=== PATIENT | male | born 2000 | race African-American/Black ===

== ENCOUNTER 2021-03-13 11:37 | Emergency (ER) | payer MEDICAID, SELFPAY ==
[2021-03-13 11:38] VITALS: BP 133/87; PULSE 95; RESP 16; TEMP 36.2; O2SAT 98; BMI 30.2
--- NOTE | 2021-03-13 12:30 | EDS_ITS ---
HPI History of Present Illness Chief Complaint: Sore Throat Informant: patient Narrative Narrative: Patient is a 21-year-old previously healthy male who presents to the emergency department for sore throat and cough. Symptoms have been present over the past 4 days. He states that he does know of a sick contact. His cousin who was around him is being Covid tested but never got her results. The patient has not been vaccinated. He has been bringing up some sputum. He states he has had bacterial infections of his throat before in the past. He is not sure if this is strep. He had subjective fevers at home. He has not been taking any thing for his symptoms. He denies nausea/vomiting or diarrhea. No headache or stiff neck. No rashes. Patient does smoke cigarettes and marijuana. PFSH PFSH Home Medications NK 03/13/21 [History Last Taken Unknown] Allergy/AdvReac Type Severity Reaction Status Date / Time No Known Allergies Allergy Verified 03/13/21 11:40 Social History Smoking Status: Current every day smoker tobacco type: cigarettes ROS ROS ED Constitutional Constitutional ED: Reports chills, fever(s) and subjective Eyes Eyes: Denies change in vision ENT ENT ED: Reports sore throat; Denies epistaxis or rhinorrhea Cardiovascular Cardiovascular: Denies chest pain or palpitations Respiratory/Chest Respiratory/Chest: Reports cough and sputum; Denies dyspnea Gastrointestinal Gastrointestinal: Denies abdominal pain, diarrhea, nausea or vomiting Musculoskeletal Musculoskeletal: Denies back pain or neck pain Integumentary Denies rash Neurologic Neurologic: Denies dizziness, headache(s) or weakness EXAM Physical Exam Const Vital Signs: 03/13/21 11:38 Temperature 97.2 F L Temperature Source Temporal Pulse Rate 95 Respiratory Rate 16 Blood Pressure 133/87 H Blood Pressure Mean 102 Pulse Ox 98 Oxygen Delivery Method Room Air Positive well nourished and well developed General Appearance ED: well developed and NAD HEENT Reports normocephalic, head/scalp atraumatic and moist mucous membranes HEENT Narrative: With large tonsils bilaterally. Uvula midline. No oral lesions. No significant oral swelling. Eyes PERRL and EOMs intact bilaterally Neck supple Chest Wall inspection of chest normal Resp normal respiratory effort and clear to auscultation bilaterally Auscultation: Negative for rales, rhonchi or wheezes Cardio regular rate, regular rhythm and no murmurs GI normal to inspection, nondistended, normoactive bowel sounds and non-tender Palpation: soft; Negative for guarding or rebound tenderness present Extremity normal to inspection General Extremety ED: Negative for edema or tenderness General Extremity: Negative for edema Neuro Sensorium / Orientation: alert Motor Exam: strength 5/5 throughout Psych mental status grossly normal Skin no rashes or lesions noted MDM MDM MDM Narrative Medical decision making narrative: Patient presents the ED for cough and sore throat. On arrival to the ED vital signs within normal limits. Is in no acute distress. Is a benign physical exam. Patient is concerned for Covid. Will check Covid swab and strep swab. I do not feel patient needs a chest x-ray to e valuate for pneumonia. No lab work indicated at this time. Patient's swabs were both negative. Will recommend symptomatic treatment. Return precautions are reviewed with him. Otherwise he is to follow-up with his PCP. Return precautions are reviewed. All questions were answered. Discharge Plan Triage Chief Complaint: Sore Throat Other Complaint: Cough ED Provider: Javier Alves Dx/Rx/DC Orders Clinical Impression: Sore throat Instructions: ED URI, Viral, No Abx (Adult) Prescriptions: No Action NK RF: 0 Primary Care Provider: Care Physician,No Primary Referrals: Care Physician,No Primary [Primary Care Provider] - 1 Week if not improving Disposition Disposition: Home, Self Care Discharge Date/Time: 03/13/21 14:43
--- NOTE | 2021-03-13 13:17 | CM.ED ---
SW Note Referral Source: Case Find Referral Reason: No Primary Care Physician SW met with patient and his girlfriend. SW provided patient with [facility] and encouraged patient to contact a PCP for ongoing medical care and educaed patient on the value of PCP's. No further SW needs voiced. SW remains available. Plan: Provided with PCP resources Ruthie VAZQUEZ
== END 2021-03-13 14:43 | disposition home or self-care (01) ==
PROVIDERS: Emergency Provider Emergency Medicine
DX: J02.9 Acute pharyngitis, unspecified (principal); R05 Cough; F17.210 Nicotine dependence, cigarettes, uncomplicated
CPT/HCPCS: 87077; 87426; 87880; 99282

== ENCOUNTER 2021-03-28 19:17 | Emergency (ER) | payer MEDICAID, SELFPAY ==
[2021-03-28 19:18] VITALS: BP 106/95; PULSE 80; RESP 16; TEMP 37.1; O2SAT 100; BMI 29.5
--- NOTE | 2021-03-28 19:53 | EX.ED.DYSGE1 ---
HPI History of Present Illness Chief Complaint: Back Narrative Narrative: Patient presents with multiple symptoms, when I walk into the room his first concern is for an STD. He has no penile discharge or testicular pain or any symptoms but just wants to make sure. He also complains of a cough for the past month same cough that his girlfriend has, he has no fever chills, he has no upper airway congestion cough seems to be worse after he smokes marijuana. He also was helping to lift a friend yesterday and developed some thoracic back pain. He has no radiation to his legs or arms and he has no midline pain. PFSH PFSH Home Medications guaifenesin [Mucinex] 600 mg PO BID #10 tab 03/28/21 [Rx Last Taken Unknown] tizanidine 2 mg PO BID #10 tab 03/28/21 [Rx Last Taken Unknown] Allergy/AdvReac Type Severity Reaction Status Date / Time No Known Allergies Allergy Verified 03/28/21 19:17 Social History Smoking Status: Current every day smoker tobacco type: cigarettes ROS ROS ED ROS Narrative Past medical history: Reviewed, unremarkable Medications: Reviewed Social history: Noncontributory Review of systems: All systems negative except as indicated General: No fever Eyes: No visual changes ENT: Some upper airway congestion Neck: No neck pain Cardiovascular: No chest pain Respiratory: No shortness of breath. Cough as in HPI Gastrointestinal: No abdominal pain, nausea vomiting or diarrhea Genitourinary: No dysuria, no testicular pain, no penile discharge Musculoskeletal: Denies myalgias no difficulty with ambulation Back: Back pain as in HPI Skin: No rash Neurological: No memory loss, confusion or any focal weakness Psych: No recent behavioral changes Hematologic: No easy bleeding or easy bruising EXAM Physical Exam Narrative Exam Narrative: Physical exam General: Well nourished, Well developed, No Acute Distress Head: Normocephalic, Atraumatic Eyes: Conjunctiva not pale ENT: Moist mucous membranes. Slight postnasal drip and slight rhinorrhea turbinates are normal Neck: Supple, Nontender, No lymphadenopathy Cardiovascular: Regular rate, Regular rhythm Respiratory: No distress, CTA bilaterally Abdomen: Soft, Nontender, Nondistended Back: Some tenderness in the upper thoracic region bilaterally, no spinal tenderness. Most of the pain is paraspinal and trapezius region. Extremities: Nontender, No edema Skin: Normal color, No rash Neurological: Alert, Normal Strength, Normal Sensation Psychological: Normal affect Const Vital Signs: 03/28/21 19:18 Temperature 98.7 F Temperature Source Temporal Pulse Rate 80 Respiratory Rate 16 Blood Pressure 106/95 H Blood Pressure Mean 98 Pulse Ox 100 Oxygen Delivery Method Room Air MDM MDM MDM Narrative Medical decision making narrative: I will test for GC and chlamydia, I will give him decongestants and muscle relaxants. Discharge Plan Triage Chief Complaint: Back ED Provider: Oleg Minor Dx/Rx/DC Orders Clinical Impression: Cough, Acute thoracic myofascial strain, Concern about STD in male without diagnosis Instructions: ED Back Sprain/Strain, ED Cough Chronic Uncertain Cause Adult Prescriptions: New tizanidine 2 mg tablet 2 mg PO BID Qty: 10 RF: 0 guaifenesin [Mucinex] 600 mg tablet extended release 12hr 600 mg PO BID Qty: 10 RF: 0 Primary Care Provider: Care Physician,No Primary Referrals: Care Physician,No Primary [Primary Care Provider] - Disposition Disposition: Home, Self Care
[2021-03-28 20:12] VITALS: BP 106/95; PULSE 80; RESP 16
[2021-03-31 03:08] LABS: Chlamydia By Nucleic Acid AMP Negative (Negative)
[2021-03-31 09:07] LABS: Gonococcus By Nucleic Acid AMP Negative (Negative)
== END 2021-03-28 20:13 | disposition home or self-care (01) ==
PROVIDERS: Emergency Provider Emergency Medicine
DX: R05 Cough (principal); S29.012A Strain of muscle and tendon of back wall of thorax, initial encounter; Z20.2 Contact with and (suspected) exposure to infections with a predominantly sexual mode of transmission; F17.210 Nicotine dependence, cigarettes, uncomplicated; X58.XXXA Exposure to other specified factors, initial encounter
CPT/HCPCS: 87491; 87591; 99282

== ENCOUNTER 2021-04-19 00:51 | Emergency (ER) | payer MEDICAID, SELFPAY ==
[2021-04-19 00:51] VITALS: BP 129/85; PULSE 89; RESP 15; TEMP 36.6; O2SAT 99; BMI 28.8
--- NOTE | 2021-04-19 01:55 | CT_ITS ---
STUDY: CT ABDOMEN AND PELVIS WITHOUT CONTRAST REASON FOR EXAM: Male, 21 years old. Pain RADIATION DOSAGE (If Supplied By Facility): CTDIvol = ( 15.38 ) mGy, DLP = ( 864.77 ) mGycm TECHNIQUE: Transaxial images were obtained from the dome of the diaphragm to the symphysis pubis without oral contrast, and without intravenous contrast. Sagittal and coronal images were reconstructed. Individualized dose optimization techniques were used for this CT. COMPARISON: None. FINDINGS: The visualized lung bases are unremarkable. The visualized portions of the heart are within normal limits. Normal liver. Normal gallbladder and extrahepatic biliary system. Normal spleen. Normal pancreas. Normal bilateral adrenal glands. Normal right kidney. Normal left kidney. Normal visualized stomach. Normal small intestine. Normal colon. Appendix may be partially visualized and appears normal. No secondary signs of acute appendicitis. Normal abdominal aorta. Normal inferior vena cava. Normal retroperitoneum. No intra-abdominal free air. Normal urinary bladder. Normal visualized prostate gland. Normal abdominal wall. L5-S1 disc space narrowing. CT/Abdomen/Pelvis without Cont IMPRESSION: No acute findings in the abdomen or pelvis. No intra-abdominal free air or free fluid collections. No evidence of bowel obstruction. Electronically Signed: Ean Soliz MD at 3:06 EDT , Service support ,
--- NOTE | 2021-04-19 01:56 | EDS_ITS ---
HPI HPI - GI History of Present Illness Chief Complaint: Flank Pain Detail of Chief Complaint: Left flank pain that started 1 week ago Informant: patient Nausea/Vomiting/Emesis GI Symptom: Positive for Nausea Narrative Narrative: Patient presents to the emergency department complaint left leg pain that started 1 week ago. Patient states the pain is continuous. Patient states the pain seems to be better when laying flat. No history of kidney stones. Patient also describes some dysuria and some yellow discharge from his penis. Does have remote history of chlamydia. Patient states that he was tested and was negative for everything in December. Currently rates his pain as an 8 out of 10. He denies any fevers. Patient denies any trauma to his back. Prior similar symptoms: No PFSH PFSH Home Medications sulfamethoxazole-trimethoprim 1 tab PO BID #14 tablet 04/19/21 [Rx Last Taken Unknown] Allergy/AdvReac Type Severity Reaction Status Date / Time No Known Allergies Allergy Verified 03/28/21 19:17 Social History Smoking Status: Current every day smoker tobacco type: cigarettes ROS ROS ED Constitutional Constitutional ED: Reports systems reviewed and no addt'l complaints, except as documented; Denies body ache(s), change in weight or chills Eyes Eyes: Denies acute decrease in peripheral vision, change in vision, double vision or loss of vision ENT ENT ED: Reports none; Denies ear pain, lip swelling, loss taste/smell, neck pain, otalgia or sore throat Cardiovascular Cardiovascular: Reports none; Denies abdominal pain, chest pain with activity, leg edema, lightheadedness, palpitations, rapid heart rate or syncope Respiratory/Chest Respiratory/Chest: Reports none; Denies change in mental status, dry cough, dyspnea, hemoptysis, shortness of breath at rest or shortness of breath with exertion Gastrointestinal Gastrointestinal: Reports none, abdominal pain and nausea; Denies change in stool character, diarrhea, hematemesis, hematochezia, melena, rectal bleeding or vomiting Genitourinary Genitourinary ED: Reports none, dysuria and other Details: Penile discharge ; Denies abdominal discomfort, anuria, genital pain or polyuria Musculoskeletal Musculoskeletal: Reports none and back pain; Denies arthralgias, difficulty walking, extremity pain, muscle weakness or myalgias Integumentary Reports none; Denies abscess or rash Neurologic Neurologic: Reports none; Denies abnormal gait, confusion, focal weakness, frequent falls, headache(s), loss of vision, numbness, paresthesias, radicular pain, vertigo or weakness Psychiatric Psychiatric: Reports systems reviewed and no addt'l complaints, except as documented and none; Denies behavioral changes, confusion, difficulty concentrating, hallucinations, suicidal ideation, tactile hallucinations or visual hallucinations Endocrine Endocrinology: Denies none, cold intolerance, excessive sweating, fatigue or heat intolerance Hematologic/Lymphatic Hematologic/Lymphatic: Reports none; Denies anemia, easy bleeding or easy bruising Allergic/Immunologic Allergic/Immunologic ED: Denies as per HPI, none, lip swelling, mouth swelling, throat swelling, tongue swelling or hives EXAM Physical Exam Const Vital Signs: 04/19/21 00:51 04/19/21 02:46 Temperature 97.9 F Temperature Source Temporal Pulse Rate 89 74 Respiratory Rate 15 Blood Pressure 129/85 H Blood Pressure Mean 99 Pulse Ox 99 Oxygen Delivery Method Room Air Positive well nourished and well developed General Appearance ED: well developed and NAD HEENT Reports TM's clear and moist mucous membranes normocephalic and atraumatic; Negative for trauma or tenderness Tympanic Membrane ED: Yes TM's clear Eyes PERRL and EOMs intact bilaterally General Eye ED: Negative for pale conjunctiva or scleral icterus Neck no lymphadenopathy, supple and no JVD General: Negative for tenderness Chest Wall inspection of chest normal and palpation of chest normal Chest: Negative for tenderness Resp normal respiratory effort and clear to auscultation bilaterally Effort and Inspection: Negative for respiratory distress or pain with movement Auscultation: Negative for rhonchi, wheezes or diminished lung sounds Cardio regular rate, regular rhythm, S1 normal heart sound, S2 normal heart sound and no murmurs Peripheral Pulses: pulses 2+ throughout GI normal to inspection, nondistended, normoactive bowel sounds, soft to palpation, non-tender, non-distended and no masses GI Narrative: Patient has some mild CVA tenderness on the left. Back/Spine no CVA tenderness and no thoracic nor lumbar tenderness Back/Spine Narrative: Patient has some tenderness palpation over the left lumbar paraspinal musculature. Negative straight leg raises. Deep tendon reflexes are plus out of 4 bilaterally at the patella and Achilles. Patient has normal 5 extension. Extremity normal to inspection General Extremety ED: Negative for edema General Extremity: Negative for edema Neuro oriented x3, CN's II-XII intact bilaterally, no sensory deficits noted and gait normal Sensorium / Orientation: awake, alert, oriented to person, oriented to place and oriented to time Motor Exam: strength 5/5 throughout and strength abnormal Psych mental status grossly normal Skin no rashes or lesions noted and no wounds MDM MDM MDM Narrative Medical decision making narrative: Patient urinalysis consistent with UTI. His gonorrhea and Chlamydia results are pending. Patient was treated with Rocephin 250 mg IM and Zithromax 1 g p.o. Patient also will be started on Bactrim DS. Patient advised to follow-up with primary care physician in 3 to 5 days to get his results. He is to abstain from intercourse until all symptoms of resolved. Lab Data Attestation: I reviewed the patient's lab results. Labs: Laboratory Results - last 24 hr 04/19/21 04/19/21 04/19/21 02:11 02:12 02:20 WBC 5.5 RBC 5.64 Hgb 16.9 H Hct 47.9 MCV 84.9 MCH 30.0 MCHC 35.3 RDW Std Deviation 36.3 RDW Coeff of Carmela 11.9 Plt Count 197 MPV 10.0 Immature Gran % (Auto) 0.200 Neut % (Auto) 64.0 Lymph % (Auto) 21.1 [place] % (Auto) 10.9 H Eos % (Auto) 3.1 Baso % (Auto) 0.7 Absolute Neuts (auto) 3.5 Absolute Lymphs (auto) 1.16 Nucleated RBC % 0 Sodium Potassium Chloride Carbon Dioxide Anion Gap BUN Creatinine Estim Creat Clear Calc Est GFR (MDRD) Af Amer Est GFR (MDRD) Non-Af BUN/Creatinine Ratio Glucose Calcium Urine Color Yellow Cancelled Urine Clarity Cloudy Cancelled Urine pH 5.0 Cancelled Ur Specific [place] 1.030 Cancelled U Specif Grav (Refrac) Cancelled Urine Protein 30 H Cancelled Urine Glucose (UA) Normal Cancelled Urine Ketones 5 H Cancelled Urine Occult Blood 25 H Cancelled Urine Nitrite Negative Cancelled Urine Bilirubin Negative Cancelled Urine Urobilinogen 1 H Cancelled Ur Leukocyte Esterase 500 H Cancelled Urine RBC 0-5 SEEN Cancelled Urine WBC >100 SEEN Cancelled Ur Squamous Epith Cells 0-5 SEEN Cancelled Ur Transition Epith Cell Cancelled Ur Renal Epithelial Cell Cancelled Calcium Oxalate Crystal Cancelled Uric Acid Crystals Cancelled Triple Phos Crystals Cancelled Other Crystals Cancelled Amorphous Sediment Cancelled Urine Bacteria 1+ Cancelled Hyaline Casts Cancelled Fine Granular Casts Cancelled Coarse Granular Casts Cancelled Waxy Casts Cancelled RBC Casts Cancelled WBC Casts Cancelled Urine Mucus 1+ Cancelled Urine Trichomonas Cancelled Urine Yeast Cancelled 04/19/21 02:20 WBC RBC Hgb Hct MCV MCH MCHC RDW Std Deviation RDW Coeff of Carmela Plt Count MPV Immature Gran % (Auto) Neut % (Auto) Lymph % (Auto) [place] % (Auto) Eos % (Auto) Baso % (Auto) Absolute Neuts (auto) Absolute Lymphs (auto) Nucleated RBC % Sodium 138 Potassium 4.3 Chloride 105 Carbon Dioxide 29.0 Anion Gap 4 L BUN 10 Creatinine 1.03 Estim Creat Clear Calc 134.45 Est GFR (MDRD) Af Amer 116 Est GFR (MDRD) Non-Af 96 BUN/Creatinine Ratio 9.7 L Glucose 92 Calcium 9.5 Urine Color Urine Clarity Urine pH Ur Specific [place] U Specif Grav (Refrac) Urine Protein Urine Glucose (UA) Urine Ketones Urine Occult Blood Urine Nitrite Urine Bilirubin Urine Urobilinogen Ur Leukocyte Esterase Urine RBC Urine WBC Ur Squamous Epith Cells Ur Transition Epith Cell Ur Renal Epithelial Cell Calcium Oxalate Crystal Uric Acid Crystals Triple Phos Crystals Other Crystals Amorphous Sediment Urine Bacteria Hyaline Casts Fine Granular Casts Coarse Granular Casts Waxy Casts RBC Casts WBC Casts Urine Mucus Urine Trichomonas Urine Yeast Radiography Diagnostic Testing: Clinical Impression(s) from Imaging Studies Abdomen/Pelvis CT 04/19/21 01:55 IMPRESSION: No acute findings in the abdomen or pelvis. No intra-abdominal free air or free fluid collections. No evidence of bowel obstruction. Electronically Signed: Ean Soliz MD at 3:06 EDT , Service support , Discharge Plan Triage Chief Complaint: Flank Pain ED Provider: Loni Hernandez Dx/Rx/DC Orders Clinical Impression: Acute UTI, Urethritis Instructions: ED STI Male Treated, ED Bladder Infection, Male (Adult) Prescriptions: New sulfamethoxazole-trimethoprim [sulfamethoxazole-trimethoprim] 1 TABLET tablet 1 tab PO BID Qty: 14 RF: 0 Primary Care Provider: Care Physician,No Primary Referrals: Oleg Perez MD [STAFF PHYSICIAN] - 3-5 Days Care Physician,No Primary [Primary Care Provider] - Disposition Disposition: Home, Self Care
[2021-04-19 02:29] LABS: Absolute Lymphocyte Count 1.16 X10^3/uL (0.83-4.51); Absolute Neutrophil Count 3.5 X10^3/uL (2.0-7.7); Basophil# 0.04 X10^3/uL; Basophil% 0.7 % (0-1); Eosinophil# 0.17 X10^3/uL; Eosinophils% 3.1 % (0-5); Hematocrit 47.9 % (40-54); Hemoglobin 16.9 g/dL (13.0-16.5); Lymphocyte # 1.16 X10^3/ul (0.83-4.51); Lymphocyte % 21.1 % (19-41); Mean Corp Hgb Conc 35.3 g/dL (32-36); Mean Corpuscular Volume 84.9 fL (80-94); Monocyte% 10.9 % (0-10); NRBC Flagged by Analyzer 0 % (0-5); Neutrophil # 3.52 X10^3/uL (2.7-7.7); Platelet Count 197 K/mm3 (150-450); RBC Distribution Width CV 11.9 % (11.6-14.6); RBC Distribution Width SD 36.3 fl (35.1-43.9); Red Blood Count 5.64 M/mm3 (4.6-6.2); White Blood Count 5.5 K/mm3 (4.4-11.0)
[2021-04-19] MEDS: 0.9% Normal Saline 1,000 ML 125 ML IV (02:42)
[2021-04-19 02:46] VITALS: PULSE 74
[2021-04-19 02:49] LABS: Anion Gap 4 (5-15); BUN 10 mg/dL (7-18); BUN/Creat Ratio 9.7 RATIO (10-20); Calcium,Total 9.5 mg/dL (8.5-10.1); Chloride 105 mmol/L (98-107); Creatinine, Serum 1.03 mg/dL (0.70-1.30); EST Glomerular Filtration Rate 96 mL/min (>60); Est Glom Filt Rate - Afr Amer 116 mL/min (>60); Estimated Creatinine Clearance 134.45 ml/min; Glucose 92 mg/dL (74-106); Potassium 4.3 mmol/L (3.5-5.1); Sodium Level 138 mmol/L (136-145)
[2021-04-19] MEDS: Ketorolac 30 MG/ML Syringe IV (02:52)
[2021-04-19 03:33] LABS: Color, Urine Yellow (Yellow); Glucose, Dipstick Normal (Normal); Ketone-Dipstick 5 mg/dl (Negative); Leukocyte Esterase-Dipstick 500 /ul (Negative); Nitrite-Dipstick Negative (Negative); Occult Blood-Urine 25 /ul (Negative); Protein-Dipstick 30 mg/dl (Negative); Urine Bilirubin Dipstick Negative (Negative); Urine Clarity Cloudy (Clear); Urine Urobilinogen 1 mg/dl (Normal)
[2021-04-19 03:40] LABS: White Blood Cells >100 SEEN /hpf (0-5)
[2021-04-19 03:41] LABS: Bacteria 1+ /hpf (None Seen); Mucous, Urine 1+ /hpf (<or=2+); Red Blood Cells-Urine 0-5 SEEN /hpf (0-5); Squamous Epithelial Cells - UA 0-5 SEEN /hpf (0-5)
[2021-04-19] MEDS: Ceftriaxone 500 MG Vial 250 MG IM (04:26)
[2021-04-19] MEDS: Azithromycin 250 MG Tablet 1000 MG PO (04:33)
[2021-04-19 04:37] VITALS: RESP 17
[2021-04-19 04:47] LABS: Chlamydia Trachomatis by PCR Negative (Negative); Probe Check PASS
[2021-04-19 04:50] LABS: Neisserai gonorrhoeae by PCR Positive (Negative)
== END 2021-04-19 04:39 | disposition home or self-care (01) ==
PROVIDERS: Emergency Provider Emergency Medicine
DX: N34.2 Other urethritis (principal); F17.210 Nicotine dependence, cigarettes, uncomplicated
CPT/HCPCS: 74176; 80048; 81001; 85025; 87086; 87491; 87591; 96372; 96374; J7030; A4216

== ENCOUNTER 2021-06-21 18:50 | Emergency (ER) | payer MEDICAID, SELFPAY ==
[2021-06-21 18:51] VITALS: BP 158/98; PULSE 68; RESP 18; TEMP 36.2; O2SAT 97; BMI 30.9
--- NOTE | 2021-06-21 19:45 | ED.RN ---
PT STATES HE IS GOING TO LEAVE AND COME BACK IN THE MORNING
== END 2021-06-21 19:34 | disposition left against medical advice (07) ==
LOC: ED 19:52
DX: Z53.21 Procedure and treatment not carried out due to patient leaving prior to being seen by health care provider (principal)

== ENCOUNTER 2021-07-22 09:25 | Outpatient (CLI) | payer MEDICAID, SELFPAY ==
[2021-07-22 09:51] LABS: Absolute Lymphocyte Count 2.26 X10^3/uL (0.83-4.51); Absolute Neutrophil Count 2.8 X10^3/uL (2.0-7.7); Basophil# 0.03 X10^3/uL; Basophil% 0.5 % (0-1); Eosinophil# 0.28 X10^3/uL; Eosinophils% 4.8 % (0-5); Hematocrit 43.1 % (40-54); Hemoglobin 15.1 g/dL (13.0-16.5); Lymphocyte # 2.26 X10^3/ul (0.83-4.51); Lymphocyte % 38.8 % (19-41); Mean Corpuscular Hgb 30.2 pg (27.0-32.0); Mean Corpuscular Volume 86.2 fL (80-94); Mean Platelet Vol. 10.3 fl (6.2-12.0); Monocyte# 0.43 X10^3/uL; Monocyte% 7.4 % (0-10); NRBC Flagged by Analyzer 0 % (0-5); Neutrophil # 2.82 X10^3/uL (2.7-7.7); Neutrophil % 48.3 % (47-70); Platelet Count 206 K/mm3 (150-450); RBC Distribution Width CV 12.1 % (11.6-14.6); RBC Distribution Width SD 38.7 fl (35.1-43.9); White Blood Count 5.8 K/mm3 (4.4-11.0)
[2021-07-22 10:41] LABS: Internal QC Validated? YES +Cl - CLEAR BKGD; Monotest Negative (Negative)
[2021-07-22 10:47] LABS: ALB/GLOB Ratio 1.2 RATIO (0.9-2.4); AST(SGOT) 15 U/L (15-37); Alanine Aminotransfer ALT/SGPT 25 U/L (16-61); Albumin, Serum 3.7 g/dL (3.2-5.0); Alkaline Phosphatase 152 U/L (45-117); Anion Gap 6 (5-15); BUN 11 mg/dL (7-18); BUN/Creat Ratio 12.2 RATIO (10-20); Calcium,Total 8.5 mg/dL (8.5-10.1); Chloride 110 mmol/L (98-107); Cholesterol 161 mg/dL (200); EST Glomerular Filtration Rate 111 mL/min (>60); Est Glom Filt Rate - Afr Amer 135 mL/min (>60); Ferritin 94 ng/mL (26-388); Globulin 3.2 g/dL (2.2-4.2); Glucose 81 mg/dL (74-106); High Density Lipoprotein 28 mg/dL; Iron 63 ug/dL (65-175); Iron Binding Capacity,Total 284 ug/dL (250-450); PERCENT IRON SATURATION 22.2 % (15.0-55.0); Potassium 3.7 mmol/L (3.5-5.1); Protein, Total 6.9 g/dL (6.4-8.2); Sodium Level 143 mmol/L (136-145); Thyroid Stim Hormone (TSH) 0.27 uIU/mL (0.358-3.74); Triglycerides 121 mg/dL; Very Low Density Lipoprotein 24 mg/dL (5-40)
[2021-07-22 14:02] LABS: Chlamydia Trachomatis by PCR Negative (Negative); Neisserai gonorrhoeae by PCR Negative (Negative); Probe Check PASS; Sample Adequacy Control PASS; Specimen Processing Control PASS
[2021-07-23 09:00] LABS: HIV - WCH Non-Reactive (Nonreactive); Hepatitis B Surface Antigen Non-Reactive (Nonreactive); Hepatitis C Antibody Non-Reactive (Nonreactive); Syphilis Antibodies Non-reactive; Vitamin B12 293 pg/mL (211-911); Vitamin D,25 Hydroxy 15.9 ng/mL
[2021-07-23 11:11] LABS: Probe Check PASS; Sample Adequacy Control PASS; Specimen Processing Control PASS; Trichomonas Vag DNA by PCR Negative (Negative)
[2021-07-24 08:50] LABS: Thyroid Peroxidase AB 19 IU/mL (0-34)
== END 2021-07-22 23:59 | disposition short-term general hospital (02) ==
LOC: LAB 09:26
PROVIDERS: Visit Provider Nurse Practitioner Adult Health
DX: Z20.2 Contact with and (suspected) exposure to infections with a predominantly sexual mode of transmission (principal); R55 Syncope and collapse
CPT/HCPCS: 36415; 80053; 80061; 82306; 82607; 82728; 83540; 83550; 84443; 85025; 86308; 86376; 86703; 86780; 86803; 87340; 87491; 87591; 87661

== ENCOUNTER 2021-07-24 09:33 | Outpatient (CLI) | payer MEDICAID, SELFPAY ==
--- NOTE | 2021-07-24 09:37 | EKG12_ITS ---
Test Reason : SOB Blood Pressure : / mmHG Vent. Rate : 048 BPM Atrial Rate : 048 BPM P-R Int : 132 ms QRS Dur : 094 ms QT Int : 432 ms P-R-T Axes : 001 044 027 degrees QTc Int : 385 ms Sinus bradycardia Otherwise normal ECG Confirmed by GARRICK KURTZ, CHUYITA ([id number]), editorial assistant CHRISTINE CARROLL ([id number]) on 07/24/2021 1:48:32 PM Referred By: Vi Lama Confirmed By:CHUYITA MCCAULEY MD
--- NOTE | 2021-07-24 10:47 | RAD_ITS ---
STUDY: X-RAY CHEST REASON FOR EXAM: Male, 21 years old. SOB TECHNIQUE: PA and lateral views of the chest. COMPARISON: None. FINDINGS: The lungs are clear and expanded. There is no demonstrated pleural abnormality. Normal size heart. Normal mediastinum and mayo. Normal visualized pulmonary arteries. Normal visualized aortic arch and descending thoracic aorta. Normal visualized thoracic spine. Normal visualized ribs, clavicles, and shoulders. There is no demonstrated abnormality of the visualized soft tissue structures of the upper abdomen. RAD/Chest PA and Lateral IMPRESSION: Normal x-ray examination of the chest. Electronically Signed: Demetri Galvan MD at 15:47 EST , Service support ,
--- NOTE | 2021-07-26 11:57 | PFT_ITS ---
INTRODUCTION: The patient is a 21-year-old -[place] male who presents for pulmonary function studies secondary to a diagnosis of shortness of breath. Respiratory therapy reported good patient effort. Bronchodilators were used during testing. INTERPRETATION: Forced expiration spirometry demonstrates no evidence of a large airways obstructive ventilatory defect. There was a significant response to aerosolized bronchodilators noted. Spirograms are of good quality and plateau normally. Body plethysmography was performed and revealed a decreased TLC to 6.68 L, 79% of predicted, indicative of a mild restrictive ventilatory impairment. Diffusing capacity by single breath CO is within normal limits. IMPRESSION: Mild restrictive ventilatory impairment secondary to body habitus. There was also evidence of small airways disease with significant bronchodilator response.
== END 2021-07-24 23:59 | disposition short-term general hospital (02) ==
PROVIDERS: Referring Provider Nurse Practitioner Adult Health; Visit Provider Nurse Practitioner Adult Health
DX: R06.02 Shortness of breath (principal)
CPT/HCPCS: 71046; 93005; 94060; 94726; 94729

== ENCOUNTER 2021-07-31 15:50 | Emergency (ER) | payer MEDICAID, SELFPAY ==
[2021-07-31 15:50] VITALS: BP 154/83; PULSE 106; RESP 18; TEMP 36.2; O2SAT 97; BMI 31.2
[2021-07-31 16:25] VITALS: TEMP 38.3
[2021-07-31] MEDS: Acetaminophen 500 MG Tablet 1000 MG PO (16:37)
--- NOTE | 2021-07-31 16:38 | EX.ED.DYSGE1 ---
HPI History of Present Illness Chief Complaint: General Illness Informant: patient Onset/Context/Timing Onset: Today Context: Gradual Onset Timing: Continuous Quality: Aching Location: Generalized Worsened by: Nothing Relieved by: Nothing Narrative Narrative: Patient presents with fever that began today. Patient states that his fever was up to 106 at home earlier today. Patient took some ibuprofen prior to arrival. Patient states he has been having some generalized myalgias. Patient describes these as aching and burning. Patient states nothing makes it better nothing makes it worse. Patient states he is having a cough with some yellow sputum. Patient also admits to some nausea but denies any vomiting. Patient also admits to generalized headache and generalized weakness. PFSH PFSH Medical History no medical history Allergy/AdvReac Type Severity Reaction Status Date / Time No Known Allergies Allergy Verified 07/31/21 15:52 Social History (Updated 07/31/21 @ 16:[address] Geo Jones, DO) Smoking Status: Current every day smoker tobacco type: cigarettes substance use type: marijuana ROS ROS ED Constitutional Constitutional ED: Denies chills or fever(s) Eyes Eyes: Reports blurry vision; Denies diplopia ENT ENT ED: Denies rhinorrhea or sore throat Cardiovascular Cardiovascular: Denies chest pain or palpitations Respiratory/Chest Respiratory/Chest: Reports cough and sputum; Denies dyspnea Gastrointestinal Gastrointestinal: Reports nausea; Denies vomiting Genitourinary Genitourinary ED: Denies dysuria or hematuria Musculoskeletal Musculoskeletal: Reports back pain, myalgias and neck pain Integumentary Denies abscess or rash Neurologic Neurologic: Reports headache(s) and weakness Allergic/Immunologic Allergic/Immunologic ED: Denies mouth swelling or urticaria EXAM Physical Exam Const Vital Signs: 07/31/21 15:50 07/31/21 16:13 07/31/21 16:25 Temperature 97.1 F L 100.9 F H Temperature Source Temporal Oral Pulse Rate 106 H Respiratory Rate 18 Respiratory Pattern Normal Blood Pressure 154/83 H Blood Pressure Mean 106 Pulse Ox 97 Oxygen Delivery Method Room Air 07/31/21 17:12 Temperature 98.9 F Temperature Source Temporal Pulse Rate Respiratory Rate Respiratory Pattern Blood Pressure Blood Pressure Mean Pulse Ox Oxygen Delivery Method Positive well nourished and well developed General Appearance ED: well developed HEENT Reports moist mucous membranes Neck supple and no JVD Resp normal respiratory effort and clear to auscultation bilaterally Cardio regular rate, regular rhythm and no murmurs GI normal to inspection, nondistended, normoactive bowel sounds and non-tender Palpation: soft Extremity normal to inspection General Extremety ED: Negative for edema or tenderness General Extremity: Negative for edema Neuro oriented x3, CN's II-XII intact bilaterally and no sensory deficits noted Sensorium / Orientation: alert Motor Exam: strength 5/5 throughout Psych mental status grossly normal Skin no rashes or lesions noted MDM MDM MDM Narrative Medical decision making narrative: COVID rapid antigen was obtained and was negative. Portable 1 view chest x-ray was obtained. On my interpretation, lung dubon are clear. There is normal cardiac silhouette. Bony thorax is normal. There is no acute process noted. Radiologist also interpreted the x-ray and agrees. Patient was given a dose of Tylenol here. Patient's temperature improved to 98.9. Patient was advised of his findings. Patient was instructed to continue using Tylenol and ibuprofen as needed for any aches or fevers. Patient was instructed to drink plenty of fluids. Patient was instructed to follow-up with his primary care physician in 5 to 7 days. Patient understood and was agreeable with the plan. All questions were answered. Radiography Chest X-Ray - ED: 1 View, Read by ED Physician, Read by Radiologist and Normal Diagnostic Testing: Clinical Impression(s) from Imaging Studies Chest X-Ray 07/31/21 16:42 IMPRESSION: No radiographic evidence of acute cardiopulmonary disease. at 1657 Reported and signed by: Ean Beckett MD Electronically Signed: Ean Beckett MD at 16:55 EST Tel , Service support , Discharge Plan Triage Chief Complaint: General Illness ED Provider: Geo Jones Dx/Rx/DC Orders Clinical Impression: Viral illness Instructions: ED Viral Syndrome (Adult) Stand Alone Forms: ED Work / School Excuse Primary Care Provider: Care Physician,No Primary Referrals: Jocelyn Callahan [NON-STAFF] - 3-5 Days Care Physician,No Primary [Primary Care Provider] - Disposition Disposition: Home, Self Care
--- NOTE | 2021-07-31 16:42 | RAD_ITS ---
HISTORY: Fever EXAMINATION/TECHNIQUE: XR Chest 1 View: Portable upright AP chest x-ray COMPARISON: July 24, 2021 FINDINGS: LINES/DEVICES: None. LUNGS: No consolidation, edema or effusion. No pneumothorax. MEDIASTINUM AND CARDIOVASCULAR STRUCTURES: Cardiac silhouette not enlarged. Central airways and mediastinal contour are unremarkable. BONES AND SOFT TISSUES: No acute bony abnormalities. RAD/Chest 1 View (Portable) IMPRESSION: No radiographic evidence of acute cardiopulmonary disease. at 1657 Reported and signed by: Ean Beckett MD Electronically Signed: Ean Beckett MD at 16:55 EST Tel , Service support ,
[2021-07-31 17:12] VITALS: TEMP 37.2
== END 2021-07-31 17:36 | disposition home or self-care (01) ==
PROVIDERS: Emergency Provider Emergency Medicine; Visit Provider Emergency Medicine
DX: B34.9 Viral infection, unspecified (principal); R51.9 Headache, unspecified; R11.0 Nausea; F17.210 Nicotine dependence, cigarettes, uncomplicated; R05.9 Cough, unspecified
CPT/HCPCS: 71045; 87426; 99284

== ENCOUNTER 2021-08-08 15:53 | Outpatient (CLI) | payer MEDICAID, SELFPAY ==
[2021-08-09 09:14] LABS: T4 Free Direct 1.32 ng/dL (0.76-1.46); Thyroid Stim Hormone (TSH) 0.98 uIU/mL (0.358-3.74)
== END 2021-08-08 23:59 | disposition short-term general hospital (02) ==
PROVIDERS: PCP Nurse Practitioner Adult Health
DX: R94.6 Abnormal results of thyroid function studies (principal)
CPT/HCPCS: 36415; 84439; 84443; 84481

== ENCOUNTER 2021-08-20 20:30 | Emergency (ER) | payer MEDICAID, SELFPAY ==
[2021-08-20 20:31] VITALS: BP 153/84; PULSE 88; RESP 18; TEMP 36.6; O2SAT 96; BMI 31.2
--- NOTE | 2021-08-20 22:16 | US_ITS ---
STUDY: VENOUS DOPPLER ULTRASOUND - RIGHT LOWER EXTREMITY REASON FOR EXAM: Male, 21 years old. RT ANTERIOR/ -- MEDIAL THIGH PAIN / PALP TECHNIQUE: Ultrasound evaluation of the deep vein system to include claros-scale imaging and compression was performed. Claros-scale imaging and Doppler sonographic evaluation, including duplex spectral analysis and qualitative color flow sonography, was performed. COMPARISON: None. FINDINGS: A large primarily hypoechoic lymph nodes node with hypervascularity is seen in the right inguinal region measuring 3.6 x 2.9 x 1.5 cm. Common Femoral Vein: Normal compression, spontaneity and augmentation. Normal color Doppler. Common Femoral Vein/Greater Saphenous Junction: Normal compression, spontaneity and augmentation. Normal color Doppler. Deep Femoral Vein: Normal compression, spontaneity and augmentation. Normal color Doppler. Femoral Proximal: Normal compression, spontaneity and augmentation. Normal color Doppler. Femoral Middle: Normal compression, spontaneity and augmentation. Normal color Doppler. Femoral Distal: Normal compression, spontaneity and augmentation. Normal color Doppler. Popliteal Vein: Normal compression, spontaneity and augmentation. Normal color Doppler. Posterior Tibial Vein: Normal compression, spontaneity and augmentation. Normal color Doppler. Peroneal Vein: Normal compression, spontaneity and augmentation. Normal color Doppler. The left common femoral vein was evaluated and is normal. US/Venous Duplex Imag/Limited/Uni IMPRESSION: 1. Normal venous Doppler ultrasound of the right lower extremity. 2. A large primarily hypoechoic lymph nodes node with hypervascularity is seen in the right inguinal region measuring 3.6 x 2.9 x 1.5 cm. Underlying infection or inflammation is suspected. Electronically Signed: Yoel Mcclure MD at 23:19 EST ,
--- NOTE | 2021-08-20 22:17 | EDS_ITS ---
HPI History of Present Illness HPI Narrative: Patient with right thigh pain that began yesterday. Patient noted some swelling to his anterior right thigh. Patient states his pain feels like aching. Patient states it is worse whenever he applies pressure to the area. Patient states he got better when he applied Biofreeze to the area. Patient denies any fevers or chills. Patient denies any paresthesias or weakness. Patient denies any trauma or injury. Patient denies any redness, discharge, or drainage. Chief Complaint: Lower Extremity Injury Informant: patient Onset/Context/Timing Onset: Yesterday Context: Gradual Onset Timing: Continuous Quality of Pain: Aching Worsened by: Pressure Relieved by: Biofreeze Associated Symptoms Associated Symptoms: Negative for Parasthesia, Weakness and Loss of Funtion [facility] Medical History (Updated 08/21/21 @ 00:[address] Geo Jones DO) Iron deficiency Vitamin B12 deficiency Vitamin D deficiency Home Medications naproxen 500 mg PO BID PRN #20 tab 08/21/21 [Rx Last Taken Unknown] Allergy/AdvReac Type Severity Reaction Status Date / Time No Known Allergies Allergy Verified 08/20/21 20:33 Social History Smoking Status: Current every day smoker tobacco type: cigarettes substance use type: marijuana ROS ROS ED Constitutional Constitutional ED: Denies chills or fever(s) Eyes Eyes: Denies blurry vision or change in vision ENT ENT ED: Denies rhinorrhea or sore throat Cardiovascular Cardiovascular: Denies chest pain or palpitations Respiratory/Chest Respiratory/Chest: Denies cough or dyspnea Gastrointestinal Gastrointestinal: Denies nausea or vomiting Genitourinary Genitourinary ED: Denies dysuria or hematuria Musculoskeletal Musculoskeletal: Denies back pain or neck pain Integumentary Denies abscess or rash Neurologic Neurologic: Denies headache(s) or weakness Allergic/Immunologic Allergic/Immunologic ED: Denies mouth swelling or urticaria EXAM Physical Exam Const Vital Signs: 08/20/21 20:31 Temperature 97.9 F Temperature Source Temporal Pulse Rate 88 Respiratory Rate 18 Blood Pressure 153/84 H Blood Pressure Mean 107 Pulse Ox 96 Oxygen Delivery Method Room Air Positive well nourished and well developed General Appearance ED: well developed HEENT Reports moist mucous membranes Extremity Extremity Narrative: There is tenderness over the anterior aspect of the right proximal thigh. There is no erythema or warmth. There is no discharge or drainage. There is no fluctuance. There is some mild firmness to this area. There is full range of motion of the right lower extremity. Pedal pulses are equal bilaterally. Sensation is intact to light touch in all digits. Neuro oriented x3, CN's II-XII intact bilaterally, moves all extremities and no sensory deficits noted Sensorium / Orientation: alert Motor Exam: strength 5/5 throughout Psych mental status grossly normal MDM MDM MDM Narrative Medical decision making narrative: Venous duplex of the right lower extremity was obtained. There is no evidence of DVT. There is a large lymph node in the right inguinal region. Patient was advised of his findings. Patient was instructed to use ice to the area. Patient was given a prescription for Naprosyn. Patient was instructed to follow-up with his primary care physician in 5 to 7 days. Patient understood and was agreeable with the plan. All questions were answered. Radiography Diagnostic Testing: Clinical Impression(s) from Imaging Studies Venous Duplex 08/20/21 22:16 IMPRESSION: 1. Normal venous Doppler ultrasound of the right lower extremity. 2. A large primarily hypoechoic lymph nodes node with hypervascularity is seen in the right inguinal region measuring 3.6 x 2.9 x 1.5 cm. Underlying infection or inflammation is suspected. Electronically Signed: Yoel Mcclure MD at 23:19 EST Reading Location ID and State: [address] [place] [address] , Service support , Discharge Plan Triage Chief Complaint: Lower Extremity Injury ED Provider: Geo Jones Dx/Rx/DC Orders Clinical Impression: Inguinal lymphadenitis Instructions: ED Adenitis Cervical No Abx Tx Prescriptions: New naproxen 500 MG tablet 500 mg PO BID PRN Qty: 20 RF: 0 Primary Care Provider: Hayde Sarabia NP Referrals: Hayde Sarabia NP, TOURIST INFORMATION ASSISTANT-C [Primary Care Provider] - 3-5 Days Disposition Disposition: Home, Self Care
[2021-08-21] MEDS: Naproxen 250 MG Tablet 500 MG PO (00:16)
== END 2021-08-21 00:17 | disposition home or self-care (01) ==
PROVIDERS: Emergency Provider Emergency Medicine; PCP Nurse Practitioner Adult Health; Visit Provider Emergency Medicine
DX: I88.9 Nonspecific lymphadenitis, unspecified (principal); F17.210 Nicotine dependence, cigarettes, uncomplicated; F12.90 Cannabis use, unspecified, uncomplicated
CPT/HCPCS: 93971; 99283

== ENCOUNTER 2021-09-15 21:21 | Emergency (ER) | payer MEDICAID, SELFPAY ==
[2021-09-15 21:22] VITALS: BP 154/95; PULSE 64; RESP 16; TEMP 35.7; O2SAT 100; BMI 31.2
--- NOTE | 2021-09-15 21:56 | EX.ED.DYSGE1 ---
HPI History of Present Illness Chief Complaint: Bite Informant: patient and spouse/S.O. Onset/Context/Timing Onset: Days Timing: Intermittent Current Severity: Mild Maximum Severity: Mild Narrative Narrative: 21-year-old male said he had fleas in the house today blood abdominalis to get rid of the fleas and use of flea: Or cat. Patient wears a flea collar on his right ankle. States he still getting bit by something. He believes it may be scabies. Today her mentally gets a bit it turns red resolved. Prior similar symptoms: Yes Recent Illness/Hospitalization: No PFSH PFSH Medical History Iron deficiency Vitamin B12 deficiency Vitamin D deficiency Home Medications NK 09/15/21 [History Last Taken Unknown] Allergy/AdvReac Type Severity Reaction Status Date / Time No Known Allergies Allergy Verified 09/15/21 21:24 Social History Smoking Status: Current every day smoker tobacco type: cigarettes substance use type: marijuana ROS ROS ED ROS Narrative Denies. Review of Systems ROS Unobtainable: Denies due to encephalopathy Constitutional Constitutional ED: Denies fever(s) Eyes Eyes: Denies change in vision ENT ENT ED: Denies ear pain Cardiovascular Cardiovascular: Denies chest pain Respiratory/Chest Respiratory/Chest: Denies dyspnea Gastrointestinal Gastrointestinal: Denies abdominal pain Genitourinary Genitourinary ED: Denies dysuria Integumentary Reports rash Neurologic Neurologic: Denies headache(s) Psychiatric Psychiatric: Denies depression Endocrine Endocrinology: Denies polyuria Allergic/Immunologic Allergic/Immunologic ED: Denies urticaria EXAM Physical Exam Narrative Exam Narrative: 20 no acute distress exam benign except the right hamstring there is an area of a small hive. There is no abscess. This could be a local allergic reaction to a local insect bite. Otherwise exam unremarkable. Const Vital Signs: 09/15/21 21:22 09/15/21 21:34 Temperature 96.3 F L Temperature Source Temporal Pulse Rate 64 Respiratory Rate 16 Respiratory Pattern Normal Blood Pressure 154/95 H Blood Pressure Mean 114 Pulse Ox 100 Oxygen Delivery Method Room Air Positive well nourished, well developed and obese; Negative for cachectic, contractures or unkempt General Appearance ED: well developed and NAD; Negative for unkempt, cachectic, contractures, cyanotic, diaphoretic or pallor Nutritional Appearance: obese; Negative for cachectic HEENT Reports moist mucous membranes Negative for trauma or tenderness Eyes PERRL and EOMs intact bilaterally Neck supple Chest Wall inspection of chest normal and palpation of chest normal Resp normal respiratory effort and clear to auscultation bilaterally Effort and Inspection: Negative for pain with movement Auscultation: Negative for rales, rhonchi or wheezes Cardio regular rate, regular rhythm, S1 normal heart sound, S2 normal heart sound and no murmurs GI normal to inspection, nondistended, normoactive bowel sounds, non-tender, non-distended and no masses Auscultation: normoactive bowel sounds Palpation: soft; Negative for tender, guarding or rebound tenderness present Back/Spine no CVA tenderness General Back: Negative for CVA tenderness Cervical Spine: Negative for cervical spine tenderness Thoracic Spine / Upper Back: Negative for thoracic spinal tenderness Extremity normal to inspection Extremity Narrative: Small hive on his hamstring. General Extremety ED: Negative for edema or tenderness General Extremity: Negative for edema Neuro oriented x3 Sensorium / Orientation: alert; Negative for lethargic or stuporous Motor Exam: strength 5/5 throughout Psych mental status grossly normal Appearance: Negative for unkempt Attitude: No agitated Mood & Affect: Negative for depressed or tearful Skin No no rashes or lesions noted and no wounds General Skin Exam: Negative for jaundice or pallor Rashes: rashes noted MDM MDM MDM Narrative Medical decision making narrative: Patient with local allergic reaction most likely to some type of insect bite. Discharge Plan Triage Chief Complaint: Bite ED Provider: Tristan Ellis Dx/Rx/DC Orders Clinical Impression: Allergic reaction, Insect bite Instructions: ED Insect Bite Prescriptions: No Action NK RF: 0 Primary Care Provider: Hayde Sarabia NP Referrals: Hayde Sarabia NP, CLAY PREPARATION SUPERVISOR-C [Primary Care Provider] - 3-5 Days if not improving Activity Restrictions/Additional Instructions: Most likely a local allergic reaction to some type of insect bite possibly a flea. Ice to the area. Benadryl. Follow-up if not improving. Disposition Disposition: Home, Self Care
[2021-09-15 22:11] VITALS: BP 140/88; PULSE 64; RESP 16; O2SAT 97
== END 2021-09-15 22:13 | disposition home or self-care (01) ==
PROVIDERS: Emergency Provider Emergency Medicine; PCP Nurse Practitioner Adult Health; Visit Provider Emergency Medicine
DX: T78.40XA Allergy, unspecified, initial encounter (principal); F17.210 Nicotine dependence, cigarettes, uncomplicated; F12.10 Cannabis abuse, uncomplicated; W57.XXXA Bitten or stung by nonvenomous insect and other nonvenomous arthropods, initial encounter
CPT/HCPCS: 99283

== ENCOUNTER 2021-09-29 04:36 | Emergency (ER) | payer MEDICAID, SELFPAY ==
[2021-09-29 04:37] VITALS: BP 154/86; PULSE 58; RESP 15; TEMP 36.2; O2SAT 100; BMI 31.4
--- NOTE | 2021-09-29 04:48 | EDS_ITS ---
HPI History of Present Illness Chief Complaint: Back Detail of Chief Complaint: Left upper back pain for several days. Informant: patient Onset/Context/Timing Onset: Days Context: Gradual Onset Injury: lifting Timing: Continuous Quality: Sharp Current Severity: Mild Maximum Severity: Mild Worsened by: improves with Movement, Bending and Lifting Relieved by: Remaining Still Associated Symptoms Associated Symptoms: Negative for Numbness, Tingling, Radiation to Right Leg, Radiation to Left Leg, Fever, Abdominal Pain, Dysuria, Unable to Ambulate, Unable to Transfer, Urinary Retention, Urinary Incontinence, Constipation and Fecal Incontinence Narrative Narrative: 21-year-old male past medical history of iron deficiency. 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 He has had discomfort since Friday it got worse yesterday. He is used Biofreeze on it and ibuprofen. He has not taken any medication since before midnight. Denies any fever. No bowel or bladder incontinence. No upper or lower extremity weakness. No prior back history. No prior back surgery. No fever. Prior similar symptoms: Yes Recent Illness/Hospitalization: No PFSH PFS Medical History Iron deficiency Vitamin B12 deficiency Vitamin D deficiency Home Medications cholecalciferol (vitamin D3) 1,250 mcg PO QWEEK 09/29/21 [History Last Taken Unknown] ferrous sulfate 325 mg PO DAILY 09/29/21 [History Last Taken Unknown] Allergy/AdvReac Type Severity Reaction Status Date / Time No Known Allergies Allergy Verified 09/29/21 04:41 Social History Smoking Status: Current every day smoker tobacco type: cigarettes substance use type: marijuana ROS ROS ED ROS Narrative Denies recent illness. Review of Systems ROS Unobtainable: Denies due to encephalopathy Constitutional Constitutional ED: Denies fever(s) Eyes Eyes: Denies change in vision ENT ENT ED: Denies ear pain Cardiovascular Cardiovascular: Denies chest pain Gastrointestinal Gastrointestinal: Denies abdominal pain Genitourinary Genitourinary ED: Denies dysuria Musculoskeletal Musculoskeletal: Reports back pain; Denies myalgias Integumentary Denies rash Neurologic Neurologic: Denies headache(s) Psychiatric Psychiatric: Denies depression Endocrine Endocrinology: Denies polyuria Hematologic/Lymphatic Hematologic/Lymphatic: Denies easy bruising Allergic/Immunologic Allergic/Immunologic ED: Denies urticaria EXAM Physical Exam Narrative Exam Narrative: 19-year-old male no acute distress vital signs stable afebrile. HEENT exam unremarkable. Neck nontender. Lungs clear to auscultation. Heart regular rhythm no murmur. Abdomen soft nontender normal bowel sounds no peritoneal signs. Patient moving all 4 extremities. 5 out of 5 graphic design intern strength. Dorsi plantarflexion intact. Normal sensation in his legs both medially and laterally. No cauda equina. No saddle anesthesia. Back exam is mild reproducible pain over the perithoracic soft tissue consistent with a myofascial strain. Currently there is no spasm. There is no redness warmth or discoloration. There is no bruising. The spine is nontender. The lower back and right side are nontender. Neurologic exam normal. No motor weakness or numbness. Const Vital Signs: 09/29/21 04:37 Temperature 97.2 F L Temperature Source Temporal Pulse Rate 58 L Respiratory Rate 15 Blood Pressure 154/86 H Blood Pressure Mean 108 Pulse Ox 100 Oxygen Delivery Method Room Air Positive well nourished, well developed and obese; Negative for cachectic, contractures or unkempt General Appearance ED: well developed and NAD; Negative for unkempt, cachectic, contractures or pallor Nutritional Appearance: obese; Negative for cachectic HEENT Reports moist mucous membranes Negative for trauma or tenderness Eyes PERRL and EOMs intact bilaterally Neck no lymphadenopathy, supple and no JVD General: Negative for tenderness Resp normal respiratory effort and clear to auscultation bilaterally Effort and Inspection: Negative for pain with movement or other Auscultation: Negative for rales or rhonchi Cardio regular rate, regular rhythm, S1 normal heart sound, S2 normal heart sound and no murmurs GI normal to inspection, nondistended, normoactive bowel sounds, soft to palpation, non-tender, non-distended and no masses Inspection: Negative for abdominal distention Auscultation: Negative for hyperactive bowel sounds Palpation: Negative for tender, guarding or rebound tenderness present Back/Spine normal to inspection and no thoracic nor lumbar tenderness Back/Spine Narrative: Tenderness left parathoracic soft tissue. No bony tenderness. General Back: Negative for CVA tenderness or scar(s) Cervical Spine: Negative for paracervical muscle tenderness Thoracic Spine / Upper Back: paraspinal muscle tenderness Lumbar Spine / Lower Back: straight leg raise negative bilaterally Extremity normal to inspection General Extremety ED: Yes tenderness; Negative for edema General Extremity: Negative for edema Neuro oriented x3 and no sensory deficits noted Sensorium / Orientation: alert; Negative for confused, lethargic or stuporous Motor Exam: strength 5/5 throughout Psych mental status grossly normal Appearance: Negative for unkempt Attitude: No agitated Mood & Affect: Negative for depressed or tearful Skin no rashes or lesions noted General Skin Exam: Negative for jaundice or pallor MDM MDM MDM Narrative Medical decision making narrative: 21-year-old male has left upper back pain most likely a parathoracic muscle strain. He has no spasm at this time. He will be given Motrin and discharged home. He does not need any imaging. He has normal motor strength and sensation to both upper and lower extremities. There is been no trauma. Discharge Plan Triage Chief Complaint: Back ED Provider: Tristan Ellis Dx/Rx/DC Orders Clinical Impression: Back strain Instructions: ED Back Sprain/Strain Prescriptions: No Action cholecalciferol (vitamin D3) 1,250 mcg (50,000 unit) capsule 1,250 mcg PO QWEEK RF: 0 ferrous sulfate 325 mg (65 mg iron) tablet 325 mg PO DAILY RF: 0 Primary Care Provider: Hayde Sarabia NP Referrals: Hayde Sarabia NP, BUSINESS SUPPORT MANAGER-C [Primary Care Provider] - 1 Week if not improving Activity Restrictions/Additional Instructions: You have strained the muscles in your left upper back. Hot shower and warm bath or whirlpool to help relax the muscles. Massage. Motrin for pain and inflammation. Tylenol is okay for pain but will do nothing for the inflammation. You do not need any x-rays or MRI at this time. This should continue to improve with rest and increase activity as tolerated. Avoid lifting more than 10 pounds so is pain-free. Follow-up with your doctor if not improving. Disposition Disposition: Home, Self Care
[2021-09-29] MEDS: Ibuprofen 600 MG Tablet PO (05:01)
[2021-09-29 05:07] VITALS: BP 154/86; PULSE 58; RESP 18; O2SAT 100
== END 2021-09-29 05:08 | disposition home or self-care (01) ==
PROVIDERS: Emergency Provider Emergency Medicine; PCP Nurse Practitioner Adult Health; Visit Provider Emergency Medicine
DX: S29.012A Strain of muscle and tendon of back wall of thorax, initial encounter (principal); F17.210 Nicotine dependence, cigarettes, uncomplicated; F12.90 Cannabis use, unspecified, uncomplicated; E66.9 Obesity, unspecified; E55.9 Vitamin D deficiency, unspecified; Z79.899 Other long term (current) drug therapy; X58.XXXA Exposure to other specified factors, initial encounter
CPT/HCPCS: 99283

== ENCOUNTER 2021-10-11 15:33 | Emergency (ER) | payer MEDICAID, SELFPAY ==
[2021-10-11 15:34] VITALS: BP 145/83; PULSE 70; RESP 14; TEMP 36.6; O2SAT 100; BMI 31.6
--- NOTE | 2021-10-11 17:40 | ED.VIS.BACK ---
HPI History of Present Illness Chief Complaint: Chest Pain Narrative Narrative: 21-year-old male presenting with right upper back pain. He states he did not do anything to injure himself. It is in the right paraspinal adjacent to the thoracic spine. It does extend up into his trapezius. He feels like it squeezing and pulling. Patient was seen by urgent care the other day and told he had some lung sliding on his pleural area. No x-ray was performed. He is not short of breath. He has no anterior chest pain. No fever or cough. He states it is worse with twisting and moving. He is taking cyclobenzaprine but this is not helping. [facility] Medical History (Updated 10/11/21 @ 17:47 by Margaux Redman) Iron deficiency Substance abuse Vitamin B12 deficiency Vitamin D deficiency Home Medications cholecalciferol (vitamin D3) 1,250 mcg PO QWEEK 09/29/21 [History Last Taken Unknown] ferrous sulfate 325 mg PO DAILY 09/29/21 [History Last Taken Unknown] naproxen [Naprosyn] 500 mg PO BID PRN #20 tab 10/11/21 [Rx Last Taken Unknown] tizanidine [Zanaflex] 4 mg PO TID PRN #18 tab 10/11/21 [Rx Last Taken Unknown] Allergy/AdvReac Type Severity Reaction Status Date / Time No Known Allergies Allergy Verified 10/11/21 15:36 Social History Smoking Status: Current every day smoker tobacco type: cigarettes and e-cigarettes substance use type: marijuana ROS ROS ED Eyes Eyes: Denies blurry vision or change in vision ENT ENT ED: Denies rhinorrhea or sore throat Cardiovascular Cardiovascular: Denies chest pain or palpitations Respiratory/Chest Respiratory/Chest: Denies dyspnea, dyspnea on exertion or sputum Gastrointestinal Gastrointestinal: Denies abdominal pain or nausea Genitourinary Genitourinary ED: Denies dysuria or hematuria Musculoskeletal Musculoskeletal: Reports back pain; Denies myalgias Integumentary Denies abscess or rash Neurologic Neurologic: Denies headache(s) or weakness Psychiatric Psychiatric: Denies anxiety or depression EXAM Physical Exam Const Vital Signs: 10/11/21 15:34 10/11/21 17:42 10/11/21 17:46 Temperature 97.8 F Temperature Source Temporal Pulse Rate 70 55 L Respiratory Rate 14 19 H Respiratory Effort Short of Breath Respiratory Pattern Normal Blood Pressure 145/83 H 124/77 H Blood Pressure Mean 103 92 Pulse Ox 100 100 Oxygen Delivery Method Room Air Room Air Positive well nourished General Appearance ED: NAD HEENT Reports moist mucous membranes Negative for trauma Eyes PERRL and EOMs intact bilaterally Resp normal respiratory effort and clear to auscultation bilaterally Cardio regular rate and regular rhythm GI normal to inspection, nondistended, normoactive bowel sounds Back/Spine Back/Spine Narrative: Tenderness to the trapezius on the right. No midline cervical spinal or thoracic spinal tenderness, deformity, step-off Thoracic Spine / Upper Back: paraspinal muscle tenderness right Neuro oriented x3 Sensorium / Orientation: alert Psych mental status grossly normal Skin no rashes or lesions noted MDM MDM MDM Narrative Medical decision making narrative: Patient ordered Norflex and Toradol. I will obtain a two-view chest. Patient does not have any cardiac or pulmonary symptoms. He is concerned about the lung sliding diagnosis. No history of DVT/PE and no risk factors. I did a chest x-ray which on my interpretation shows no acute cardiopulmonary process and the radiologist agree. Patient reevaluated and feeling much better. We will change his muscle relaxers to Zanaflex and give him Naprosyn. He request a work note for a few days to get better. He is counseled to stretch, ice, heat. He is to follow-up with his PCP to ensure resolution. Impression: 1. Thoracic strain Radiography Diagnostic Testing: Clinical Impression(s) from Imaging Studies Chest X-Ray 10/11/21 17:54 IMPRESSION: No radiographic evidence of acute cardiopulmonary disease. Electronically Signed: Bruno Matt MD at 18:32 EDT Reading Location ID and State: [facility] / [place] , Service support , Discharge Plan Triage Chief Complaint: Chest Pain ED Provider: Betito Jacobs Dx/Rx/DC Orders Instructions: ED Thoracic Spine Strain Prescriptions: New naproxen [Naprosyn] 500 mg tablet 500 mg PO BID PRN (Reason: pain) Qty: 20 RF: 0 tizanidine [Zanaflex] 4 mg tablet 4 mg PO TID PRN (Reason: muscle spasticity) Qty: 18 RF: 0 No Action cholecalciferol (vitamin D3) 1,250 mcg (50,000 unit) capsule 1,250 mcg PO QWEEK RF: 0 ferrous sulfate 325 mg (65 mg iron) tablet 325 mg PO DAILY RF: 0 Primary Care Provider: Hayde Sarabia NP Referrals: Hayde Sarabia NP, [employer] [Primary Care Provider] - Disposition Disposition: Home, Self Care Discharge Date/Time: 10/11/21 18:49
[2021-10-11 17:46] VITALS: BP 124/77; PULSE 55; RESP 19; O2SAT 100
[2021-10-11] MEDS: Ketorolac 15 MG/ML Vial IM (17:48)
[2021-10-11] MEDS: Orphenadrine 60 MG/2 ML Ampul IM (17:48)
--- NOTE | 2021-10-11 17:54 | RAD_ITS ---
EXAM: XR CHEST, 2 VIEWS CLINICAL INDICATION: pain TECHNIQUE: Frontal and lateral views of the chest. This report was created using [employer] report generation technology. COMPARISON: None. FINDINGS: LUNGS AND PLEURAL SPACES: Unremarkable. No consolidation or edema. No pneumothorax. No effusion. HEART: Unremarkable. Cardiac silhouette not enlarged. MEDIASTINUM: Central airways and mediastinal contour are unremarkable. BONES/JOINTS: Unremarkable. SOFT TISSUES: Unremarkable. RAD/Chest PA and Lateral IMPRESSION: No radiographic evidence of acute cardiopulmonary disease. Electronically Signed: Bruno Matt MD at 18:32 EDT ,
== END 2021-10-11 18:49 | disposition home or self-care (01) ==
PROVIDERS: Emergency Provider Student in an Organized Health Care Education/Training Program; PCP Nurse Practitioner Adult Health; Visit Provider Student in an Organized Health Care Education/Training Program
DX: S29.019A Strain of muscle and tendon of unspecified wall of thorax, initial encounter (principal); F17.210 Nicotine dependence, cigarettes, uncomplicated; F12.90 Cannabis use, unspecified, uncomplicated; X58.XXXA Exposure to other specified factors, initial encounter
CPT/HCPCS: 71046; 96372; 99282

== ENCOUNTER → 2021-11-29 | Outpatient (CLI) | payer MEDICAID, SELFPAY ==
--- NOTE | 2021-11-29 14:12 | EKG12_ITS ---
Test Reason : PALPS Blood Pressure : / mmHG Vent. Rate : 051 BPM Atrial Rate : 051 BPM P-R Int : 142 ms QRS Dur : 102 ms QT Int : 426 ms P-R-T Axes : 017 049 021 degrees QTc Int : 392 ms Sinus bradycardia with Premature atrial complexes Otherwise normal ECG Confirmed by SHANE KURTZ, CATALINA ([id number]), news video editor ELIAN VALENTINO ([id number]) on 11/30/2021 2:10:07 PM Referred By: Vi Lama Confirmed By:CATALINA LYNN MD
--- NOTE | 2021-11-29 14:40 | RAD_ITS ---
INDICATION: CHEST PAIN EXAMINATION/TECHNIQUE: X-RAY - XR Chest 2 Views COMPARISON: 10/11/2021 FINDINGS: LINES/DEVICES: None. LUNGS: No consolidation, edema or effusion. No pneumothorax. MEDIASTINUM AND CARDIOVASCULAR STRUCTURES: Cardiac silhouette not enlarged. Central airways and mediastinal contour are unremarkable. BONES AND SOFT TISSUES: Unremarkable. RAD/Chest PA and Lateral IMPRESSION: No radiographic evidence of acute cardiopulmonary disease. Electronically Signed: Ean Beckett MD at 1:02 EDT ,
[2021-11-29 17:11] LABS: Absolute Lymphocyte Count 2.67 X10^3/uL (0.83-4.51); Absolute Neutrophil Count 3.3 X10^3/uL (2.0-7.7); Basophil# 0.04 X10^3/uL; Basophil% 0.6 % (0-1); Eosinophils% 4.4 % (0-5); Hematocrit 46.2 % (40-54); Hemoglobin 15.9 g/dL (13.0-16.5); Lymphocyte # 2.67 X10^3/ul (0.83-4.51); Mean Corp Hgb Conc 34.4 g/dL (32-36); Mean Corpuscular Hgb 29.8 pg (27.0-32.0); Mean Corpuscular Volume 86.5 fL (80-94); Mean Platelet Vol. 10.7 fl (6.2-12.0); Monocyte# 0.49 X10^3/uL; Monocyte% 7.2 % (0-10); NRBC Flagged by Analyzer 0 % (0-5); Neutrophil # 3.33 X10^3/uL (2.7-7.7); Neutrophil % 48.5 % (47-70); Platelet Count 219 K/mm3 (150-450); RBC Distribution Width CV 12.4 % (11.6-14.6); RBC Distribution Width SD 39.3 fl (35.1-43.9); Red Blood Count 5.34 M/mm3 (4.6-6.2); White Blood Count 6.9 K/mm3 (4.4-11.0)
[2021-11-29 18:17] LABS: Vitamin B12 883 pg/mL (211-911); Vitamin D,25 Hydroxy 53.7 ng/mL
[2021-11-29 18:23] LABS: ALB/GLOB Ratio 1.4 RATIO (0.9-2.4); AST(SGOT) 16 U/L (15-37); Alanine Aminotransfer ALT/SGPT 26 U/L (16-61); Albumin, Serum 4.5 g/dL (3.2-5.0); Alkaline Phosphatase 103 U/L (45-117); Anion Gap 5 (5-15); BUN 8 mg/dL (7-18); BUN/Creat Ratio 7.9 RATIO (10-20); Calcium,Total 9.4 mg/dL (8.5-10.1); Chloride 107 mmol/L (98-107); Creatinine, Serum 1.01 mg/dL (0.70-1.30); EST Glomerular Filtration Rate 98 mL/min (>60); Est Glom Filt Rate - Afr Amer 118 mL/min (>60); Globulin 3.3 g/dL (2.2-4.2); Glucose 88 mg/dL (74-106); Iron 63 ug/dL (65-175); Iron Binding Capacity,Total 321 ug/dL (250-450); PERCENT IRON SATURATION 19.6 % (15.0-55.0); Potassium 3.8 mmol/L (3.5-5.1); Protein, Total 7.8 g/dL (6.4-8.2); Sodium Level 140 mmol/L (136-145); Thyroid Stim Hormone (TSH) 2.21 uIU/mL (0.358-3.74)
[2021-12-02 17:14] LABS: Vitamin D 1,25-Dihydroxy 88.3 pg/mL (19.9-79.3)
== END | disposition home or self-care (01) ==
PROVIDERS: Referring Provider Nurse Practitioner Adult Health; Visit Provider Nurse Practitioner Adult Health
DX: R07.9 Chest pain, unspecified (principal); R06.02 Shortness of breath; R53.83 Other fatigue
CPT/HCPCS: 36415; 71046; 80053; 82306; 82607; 82652; 83540; 83550; 84443; 85025; 93005

== ENCOUNTER 2022-03-28 22:36 | Emergency (ER) | payer MEDICAID, SELFPAY ==
[2022-03-28 22:37] VITALS: BP 148/90; PULSE 65; RESP 18; TEMP 36.1; O2SAT 98; BMI 27.8
[2022-03-28 22:50] LABS: Absolute Lymphocyte Count 2.04 X10^3/uL (0.83-4.51); Absolute Neutrophil Count 4.4 X10^3/uL (2.0-7.7); Basophil# 0.03 X10^3/uL; Basophil% 0.4 % (0-1); Eosinophil# 0.16 X10^3/uL; Eosinophils% 2.3 % (0-5); Hematocrit 47.8 % (40-54); Hemoglobin 16.5 g/dL (13.0-16.5); Lymphocyte # 2.04 X10^3/ul (0.83-4.51); Lymphocyte % 28.8 % (19-41); Mean Corp Hgb Conc 34.5 g/dL (32-36); Mean Corpuscular Hgb 30.3 pg (27.0-32.0); Mean Corpuscular Volume 87.7 fL (80-94); Mean Platelet Vol. 10.6 fl (6.2-12.0); Monocyte% 5.6 % (0-10); NRBC Flagged by Analyzer 0 % (0-5); Neutrophil # 4.42 X10^3/uL (2.7-7.7); Neutrophil % 62.5 % (47-70); Platelet Count 203 K/mm3 (150-450); RBC Distribution Width CV 12.7 % (11.6-14.6); RBC Distribution Width SD 40.5 fl (35.1-43.9); Red Blood Count 5.45 M/mm3 (4.6-6.2); White Blood Count 7.1 K/mm3 (4.4-11.0)
[2022-03-28 23:03] LABS: Anion Gap 7 (5-15); BUN 10 mg/dL (7-18); BUN/Creat Ratio 8.7 RATIO (10-20); Calcium,Total 9.7 mg/dL (8.5-10.1); Chloride 112 mmol/L (98-107); Creatinine, Serum 1.15 mg/dL (0.70-1.30); EST Glomerular Filtration Rate 84 mL/min (>60); Est Glom Filt Rate - Afr Amer 101 mL/min (>60); Glucose 98 mg/dL (74-106); Potassium 4.4 mmol/L (3.5-5.1); Sodium Level 145 mmol/L (136-145)
[2022-03-28 23:11] LABS: Color, Urine Yellow (Yellow); Glucose, Dipstick Normal (Normal); Ketone-Dipstick Negative (Negative); Leukocyte Esterase-Dipstick 25 /ul (Negative); Mucous, Urine 0 SEEN /hpf (<or=2+); Nitrite-Dipstick Negative (Negative); Occult Blood-Urine Negative /ul (Negative); Protein-Dipstick 15 mg/dl (Negative); Red Blood Cells-Urine 0 SEEN /hpf (0-5); Specific Gravity, Urine 1.025 (1.002-1.030); Urine Bilirubin Dipstick Negative (Negative); Urine Clarity Clear (Clear); Urine Urobilinogen Normal (Normal)
[2022-03-28 23:48] LABS: Bacteria RARE /hpf (None Seen); Squamous Epithelial Cells - UA 0-5 SEEN /hpf (0-5); White Blood Cells 0-5 SEEN /hpf (0-5)
[2022-03-29] MEDS: Mag Hydrox/Al Hydrox/Simeth 30 ML UDC PO (00:39)
[2022-03-29 00:47] VITALS: BP 142/63; PULSE 57; RESP 18; TEMP 36.6; O2SAT 100
[2022-03-29] MEDS: 0.9% Normal Saline 1,000 ML 999 ML IV (00:47)
[2022-03-29] MEDS: Famotidine 200 MG/20 ML MDV 20 MG in 0.9% Normal Saline (Pres. free 8 ML 300 MG IV (01:03)
[2022-03-29 01:15] LABS: AST(SGOT) 14 U/L (15-37); Alanine Aminotransfer ALT/SGPT 20 U/L (16-61); Albumin, Serum 4.1 g/dL (3.2-5.0); Alkaline Phosphatase 154 U/L (45-117); Bilirubin, Direct 0.09 mg/dL (0.00-0.30); Lipase 259 U/L (73-393); Protein, Total 7.1 g/dL (6.4-8.2)
--- NOTE | 2022-03-29 01:53 | EDS_ITS ---
HPI History of Present Illness Chief Complaint: Abd Pain Narrative Narrative: Patient is a 22-year-old male who states that this evening he ate pizza with peppers on it. He states shortly after he began having generalized abdominal discomfort with nausea. He denies any fevers or chills he states there was no associated vomiting and he denies any dysuria or diarrhea. He states that as time is past his symptoms have spontaneously improved but based on the severity of the initial symptoms presents for evaluation. [facility] Medical History (Updated 03/29/22 @ 01:[address] Corbin Ledezma DO) Iron deficiency Substance abuse Vitamin B12 deficiency Vitamin D deficiency Home Medications cholecalciferol (vitamin D3) 1,250 mcg (50,000 unit) capsule 1,250 mcg PO QWEEK 09/29/21 [History Last Taken Unknown] ferrous sulfate 325 mg (65 mg iron) tablet 325 mg PO DAILY 09/29/21 [History Last Taken Unknown] Allergy/AdvReac Type Severity Reaction Status Date / Time No Known Allergies Allergy Verified 03/28/22 23:23 Social History Smoking Status: Current every day smoker tobacco type: cigarettes and e- cigarettes substance use type: marijuana ROS ROS ED Constitutional Constitutional ED: Denies chills or fever(s) ENT ENT ED: Denies sore throat Cardiovascular Cardiovascular: Denies chest pain Respiratory/Chest Respiratory/Chest: Denies cough or dyspnea Gastrointestinal Gastrointestinal: Reports abdominal pain and nausea; Denies diarrhea or vomiting Genitourinary Genitourinary ED: Denies dysuria Musculoskeletal Musculoskeletal: Denies myalgias Integumentary Denies rash Neurologic Neurologic: Denies headache(s) Hematologic/Lymphatic Hematologic/Lymphatic: Denies easy bleeding or easy bruising EXAM Physical Exam Const Vital Signs: 03/28/22 22:37 03/29/22 00:47 03/29/22 02:01 Temperature 96.9 F L 97.9 F Temperature Source Temporal Oral Pulse Rate 65 57 L 49 L Respiratory Rate 18 18 18 Blood Pressure 148/90 H 142/63 H 128/60 H Blood Pressure Mean 109 89 Pulse Ox 98 100 100 Oxygen Delivery Method Room Air Room Air Positive well nourished and well developed General Appearance ED: well developed HEENT Reports moist mucous membranes Eyes PERRL and EOMs intact bilaterally Neck supple Resp normal respiratory effort and clear to auscultation bilaterally Cardio regular rate and regular rhythm Rate: other Other Details: Radial pulses are plus 2 out of 4 bilaterally are equal and symmetric GI non-distended GI Narrative: Abdomen is soft and nondistended with hyperactive bowel sounds. There is mild pain with palpation diffusely without voluntary guarding or rigidity. No pulsatile mass Auscultation: hyperactive bowel sounds Palpation: soft Extremity normal to inspection Neuro oriented x3 and CN's II-XII intact bilaterally Sensorium / Orientation: alert Psych mental status grossly normal Skin no rashes or lesions noted MDM MDM MDM Narrative Medical decision making narrative: Patient presented to the ER with a soft nonsurgical abdomen and therefore I felt no need for emergent imaging studies. His history of present illness along with spontaneous resolution is most consistent with gastritis secondary to the ingested food. Basic blood work was obtained which revealed no clinically significant findings. After IV fluids a GI cocktail and Pepcid patient reported resolution of symptoms. On reevaluation his abdomen remains soft and nonsurgical and therefore patient is otherwise safe for discharge. Lab Data Attestation: I reviewed the patient's lab results. Labs: Laboratory Results - last 24 hr 03/28/22 03/28/22 03/28/22 22:40 22:40 22:40 WBC 7.1 RBC 5.45 Hgb 16.5 Hct 47.8 MCV 87.7 MCH 30.3 MCHC 34.5 RDW Std Deviation 40.5 RDW Coeff of Carmela 12.7 Plt Count 203 MPV 10.6 Immature Gran % (Auto) 0.400 Neut % (Auto) 62.5 Lymph % (Auto) 28.8 [place] % (Auto) 5.6 Eos % (Auto) 2.3 Baso % (Auto) 0.4 Absolute Neuts (auto) 4.4 Absolute Lymphs (auto) 2.04 Nucleated RBC % 0 Sodium 145 Potassium 4.4 Chloride 112 H Carbon Dioxide 26.0 Anion Gap 7 BUN 10 Creatinine 1.15 Estim Creat Clear Calc 119.40 Est GFR (MDRD) Af Amer 101 Est GFR (MDRD) Non-Af 84 BUN/Creatinine Ratio 8.7 L Glucose 98 Calcium 9.7 Total Bilirubin 0.30 Direct Bilirubin 0.09 AST 14 L ALT 20 Alkaline Phosphatase 154 H Total Protein 7.1 Albumin 4.1 Globulin 3.0 Lipase 259 Urine Color Urine Clarity Urine pH Ur Specific [place] Urine Protein Urine Glucose (UA) Urine Ketones Urine Occult Blood Urine Nitrite Urine Bilirubin Urine Urobilinogen Ur Leukocyte Esterase Urine RBC Urine WBC Ur Squamous Epith Cells Urine Bacteria Urine Mucus 03/28/22 23:00 WBC RBC Hgb Hct MCV MCH MCHC RDW Std Deviation RDW Coeff of Carmela Plt Count MPV Immature Gran % (Auto) Neut % (Auto) Lymph % (Auto) [place] % (Auto) Eos % (Auto) Baso % (Auto) Absolute Neuts (auto) Absolute Lymphs (auto) Nucleated RBC % Sodium Potassium Chloride Carbon Dioxide Anion Gap BUN Creatinine Estim Creat Clear Calc Est GFR (MDRD) Af Amer Est GFR (MDRD) Non-Af BUN/Creatinine Ratio Glucose Calcium Total Bilirubin Direct Bilirubin AST ALT Alkaline Phosphatase Total Protein Albumin Globulin Lipase Urine Color Yellow Urine Clarity Clear Urine pH 6.0 Ur Specific [place] 1.025 Urine Protein 15 H Urine Glucose (UA) Normal Urine Ketones Negative Urine Occult Blood Negative Urine Nitrite Negative Urine Bilirubin Negative Urine Urobilinogen Normal Ur Leukocyte Esterase 25 H Urine RBC 0 SEEN Urine WBC 0-5 SEEN Ur Squamous Epith Cells 0-5 SEEN Urine Bacteria RARE Urine Mucus 0 SEEN Discharge Plan Triage Chief Complaint: Abd Pain ED Provider: Corbin Ledezma Dx/Rx/DC Orders Clinical Impression: Gastritis Instructions: ED Gastritis (Adult) Prescriptions: No Action cholecalciferol (vitamin D3) 1,250 mcg (50,000 unit) capsule 1,250 mcg PO QWEEK Label Comments: TAKE 1 TAB BY MOUTH EVERY WEEK. ferrous sulfate 325 mg (65 mg iron) tablet 325 mg PO DAILY Label Comments: TAKE 1 TABLET BY MOUTH EVERY DAY Primary Care Provider: [facility]elyn Olivas [facility] - Disposition Disposition: Home, Self Care Discharge Date/Time: 03/29/22 02:04
[2022-03-29 02:01] VITALS: BP 128/60; PULSE 49; RESP 18; O2SAT 100
== END 2022-03-29 02:04 | disposition home or self-care (01) ==
PROVIDERS: Emergency Provider Emergency Medicine; Visit Provider Emergency Medicine
DX: K29.70 Gastritis, unspecified, without bleeding (principal); F17.210 Nicotine dependence, cigarettes, uncomplicated; F12.90 Cannabis use, unspecified, uncomplicated
CPT/HCPCS: 80048; 80076; 81001; 83690; 85025; 99284; J7030; A4216; J3490

== ENCOUNTER 2022-05-14 17:12 | Emergency (ER) | payer MEDICAID, SELFPAY ==
--- NOTE | 2022-05-14 17:25 | ED.RN ---
Pt brought in by EMS for body aches and fever. Sent to triage d/t bed availability. In triage room while assessing pt's vitals signs he became agitated when the blood pressure cuff was squeezing his arm because he stated it is cutting off my circulation to my arm. Explained to pt that the blood pressure cuff will squeeze tight and then the pressure will release and it will not hurt anymore. Pt states that this RN is disrespecting him and that I am not listening. Pt states you are just an RN, I want to see a Doctor! Adv pt once triage process was completed that he would be taken back to see a doctor. Pt states you cannot take my blood pressure like that, it cut off my circulation in the squad and you can't do that again. Again explained that in order for him to be seen he would need the triage process completed which includes vital signs. Pt took blood pressure cuff off and stood up stating I'm done with you! You are being disrespectful to me. I want another nurse. Advised pt that he could have a seat in the waiting room to try to settle down some and then we could finish the check in process. Pt out to waiting room, security present.
--- NOTE | 2022-05-14 17:30 | ED.RN ---
PT WAS BROUGHT IN BY EMS FOR HIS FEVER AND NOT FEELING WELL. WHEN TRIAGE NURSE WAS ATTEMPTING TO TRIAGE HIM PT BECAME UNCOOPERATIVE AND IS REFUSING HIS BP TO BE TAKEN BECAUSE IT CUTS OFF THE CIRCULATION IN HIS ARM AND HIS HAND GOES NUMB. SINCE HE WAS BEING AGITATED AND CONFRONTATION THIS NURSE WAS ASKED TO COME TALK WITH THE PT. WHEN THIS NURSE WENT OUT TO TALK TO THE PT IN THE HALLWAY HE WAS IMMEDIATELY CONFRONTATION AND STATED HE NEEDS TO SEE A DR IMMEDIATELY. ATTEMPTED TO EXPLAIN THE TRIAGE PROCESS AND NECESSARY ASSESSMENTS THAT NEEDED TO HAPPEN SO PT COULD GO BACK TO A ROOM AND A DR TO SEE HIM. PT IS UNABLE TO LISTEN TO ANY OF THIS INFORMATION AND CONTINUED TO ARGUE. MULTIPLE TIMES TRIED TO EXPLAIN THINGS TO THE PT AND HE WOULD NOT LISTEN, STATED EVERYONE WAS DISRESPECTING HIM, STATES HE IS A GROWN MAN AND IS WORRIED BECAUSE HE HAS A FEVER. ASKED PT IF HE TOOK ANYTHING FOR THE FEVER AND HE STATED NO HE NEEDS TO SEE A DR. AGAIN EXPLAINED THAT THERE ARE BASIC VITALS SIGNS THAT NEEDS TO BE ASSESSED PRIOR TO SEEING THE DR,. EXPLAINED IT IS UP TO THE PT TO COOPERATE SO WE CAN GET HIM SEEN OR HE CAN GO SOMEWHERE ELSE. PT STATED THAT HE WOULD LEAVE AND HAVE TO WALK 1 1/2 HRS HOME AND HE WOULD PASS OUT AND THEN HAVE TO COME BACK. THEN WE WOULD ALL BE IN TROUBLE. AGAIN INFORMED PT WE WOULD SEE HIM BUT WE HAVE TO DO BASIC VITAL SIGNS AND HE CONTINUES TO NOT AGREE TO THAT AND STATE HOW HE IS BEING DISRESPECTED. SECURITY AND HRO PRESENT ALSO. HRO ATTEMPTED TO EXPLAIN HIS OPTIONS TO HIM WELL. PT STATED AT ONE POINT HIS GF IS ON HER WAY AND SHE CAN TAKE HIM SOMEWHERE ELSE. REITERATED OUR WILLINGNESS TO SEE HIM AND HIS OPTIONS BUT PT WOULD NOT STOP RANTING TO LISTEN. THIS NURSE THEN LEFT PT IN THE HALLWAY WITH SECURITY AND HRO.
[2022-05-14 18:27] VITALS: BP 166/105; PULSE 112; RESP 18; TEMP 37.4; O2SAT 100; BMI 31.2
--- NOTE | 2022-05-14 19:03 | ED.RN ---
LWBS [id number]
== END 2022-05-14 19:05 | disposition left against medical advice (07) ==
LOC: ED 19:06
DX: Z53.21 Procedure and treatment not carried out due to patient leaving prior to being seen by health care provider (principal)

== ENCOUNTER 2022-05-15 03:00 | Emergency (ER) | payer MEDICAID, SELFPAY ==
[2022-05-15 03:01] VITALS: BP 140/84; PULSE 83; RESP 16; TEMP 37.9; O2SAT 100; BMI 30.9
--- NOTE | 2022-05-15 03:49 | EX.ED.DYSGE1 ---
HPI History of Present Illness Chief Complaint: Fever Narrative Narrative: Patient presents with cough congestion and a low-grade fever for the past 2 days. No difficulty breathing no neck pain or stiffness. He has a mild upper respiratory congestion. No rash PFSH PFSH Medical History Iron deficiency Substance abuse Vitamin B12 deficiency Vitamin D deficiency Medical History no medical history Home Medications cholecalciferol (vitamin D3) 1,250 mcg (50,000 unit) capsule 1,250 mcg PO QWEEK 09/29/21 [History Last Taken Unknown] ferrous sulfate 325 mg (65 mg iron) tablet 325 mg PO DAILY 09/29/21 [History Last Taken Unknown] guaifenesin 600 mg tablet, extended release 12 hr (Mucinex) 600 mg PO BID #10 tabs 05/15/22 [Rx Last Taken Unknown] naproxen 500 mg tablet (Naprosyn) 500 mg PO BID #20 tabs 05/15/22 [Rx Last Taken Unknown] Allergy/AdvReac Type Severity Reaction Status Date / Time No Known Allergies Allergy Verified 05/14/22 18:27 Social History Smoking Status: Current every day smoker tobacco type: cigarettes and e-cigarettes substance use type: marijuana ROS ROS ED ROS Narrative Past medical history: Reviewed Medications: Reviewed Social history: Noncontributory Review of systems: All systems negative except as indicated General: Low-grade fever Eyes: No visual changes ENT: Some upper airway congestion Neck: No neck pain Cardiovascular: No chest pain Respiratory: No shortness of breath or cough Gastrointestinal: No abdominal pain, nausea vomiting or diarrhea Genitourinary: No dysuria Musculoskeletal: Denies myalgias no difficulty with ambulation Skin: No rash Neurological: No memory loss, confusion or any focal weakness Psych: No recent behavioral changes Hematologic: No easy bleeding or easy bruising EXAM Physical Exam Narrative Exam Narrative: Physical exam General: Patient appears relatively comfortable in the bed s Head: Normocephalic, Atraumatic Eyes: Conjunctiva not pale ENT: Moist membranes, he has upper airway congestion and rhinorrhea. Slight uvulitis is present but otherwise normal posterior oropharynx with normal soft palate. Normal voice. Neck: Supple, Nontender, No lymphadenopathy Cardiovascular: Regular rate, Regular rhythm Respiratory: No distress, CTA bilaterally Abdomen: Soft, Nontender, Nondistended Back: Nontender, Normal Inspection. Negative for: CVA tenderness Extremities: Nontender, No edema Skin: Normal color, No rash Neurological: Alert, Normal Strength, Normal Sensation Psychological: Normal affect Const Vital Signs: 05/15/22 03:01 05/15/22 03:15 Temperature 100.2 F H Temperature Source Oral Pulse Rate 83 Respiratory Rate 16 Respiratory Effort Normal Non-Labored Respiratory Pattern Normal Blood Pressure 140/84 H Blood Pressure Mean 102 Pulse Ox 100 MDM MDM MDM Narrative Medical decision making narrative: Patient has an upper respiratory infection, it is likely viral, because of the uvulitis I will give 1 dose of Decadron otherwise I will treat the patient symptomatically. I will test for COVID and RSV but it is 3:30 in the morning and patient was to be discharged she can check the results at home this seems reasonable. Discharge Plan Triage Chief Complaint: Fever ED Provider: Oleg Minor Dx/Rx/DC Orders Clinical Impression: Acute upper respiratory infection, Uvulitis Instructions: ED URI, Viral, No Abx (Adult) Prescriptions: New naproxen [Naprosyn] 500 mg tablet 500 mg PO BID Qty: 20 0RF guaifenesin [Mucinex] 600 mg tablet extended release 12hr 600 mg PO BID Qty: 10 0RF No Action cholecalciferol (vitamin D3) 1,250 mcg (50,000 unit) capsule 1,250 mcg PO QWEEK Label Comments: TAKE 1 TAB BY MOUTH EVERY WEEK. ferrous sulfate 325 mg (65 mg iron) tablet 325 mg PO DAILY Label Comments: TAKE 1 TABLET BY MOUTH EVERY DAY Primary Care Provider: Vi Lama Referrals: Vi Lama, [employer] COPER-C [Primary Care Provider] - 3-5 Days
[2022-05-15] MEDS: dexAMETHasone 4 MG Tablet 12 MG PO (04:17)
[2022-05-15] MEDS: Ketorolac 30 MG/ML Syringe IM (04:19)
[2022-05-15 04:48] VITALS: BP 140/84; PULSE 83; RESP 16; O2SAT 100
== END 2022-05-15 04:20 | disposition home or self-care (01) ==
LOC: ED 03:20
PROVIDERS: Emergency Provider Emergency Medicine; PCP Nurse Practitioner Adult Health; Visit Provider Emergency Medicine
DX: J06.9 Acute upper respiratory infection, unspecified (principal); K12.2 Cellulitis and abscess of mouth; F17.210 Nicotine dependence, cigarettes, uncomplicated; F12.90 Cannabis use, unspecified, uncomplicated
CPT/HCPCS: 87428; 96372; 99283